=== PATIENT | female | born 1970 | race Caucasian/White ===

== ENCOUNTER 2023-07-23 18:13 | Emergency (ER) | payer OTHER, SELFPAY ==
[2023-07-23 18:15] VITALS: BP 149/93; PULSE 87; RESP 20; TEMP 36.7; O2SAT 99; BMI 32.3
--- NOTE | 2023-07-23 18:22 | ED_ITS ---
Discharge Plan Disposition Patient Disposition: Home, Self-Care Condition: Good Prescriptions Prescriptions: No Action lisinopril-hydrochlorothiazide 10-12.5 mg tablet 1 tab PO QDAY sulfacetamide sodium 10 % drops 2 drp OPHTHALMIC QID 7 Days Qty: 15 0RF Rx Instructions: ii gtts O.U. qid x 7 days Referrals Follow up/Referrals: Renny Brown [Primary Care Provider] - See instructions Activity Restrictions/Add. Instructions Additional Instructions/Restrictions: Follow up with your regular doctor. GO TO THE ER FOR ANY WORSENING SYMPTOMS Clinical Impressions Clinical Impression: Itchy scalp Instructions Patient Instructions: DI for Head Lice Discharge ED Provider: Chito Delvalle [facility] [place] General Stated complaint: ? Lice Time Seen by Provider: 07/23/23 18:22 History of Present Illness Provider Complaint: She came in to have her scalp checked for lice. She states that she has noted a small bug that she thinks came from her hair today. She has also had some itching of her scalp at times since yesterday. Related Data Home Medications Medication Instructions Recorded Confirmed lisinopril 10 1 tab PO QDAY 04/24/17 02/22/20 mg-hydrochlorothiazide 12.5 mg tablet Previous Rx's Medication Instructions Recorded sulfacetamide sodium 10 % eye drops 2 drp ophthalmic (eye) QID 02/22/20 conjunctivitis 7 days #15 mL Allergies Allergy/AdvReac Type Severity Reaction Status Date / Time No Known Allergies Allergy Verified 02/22/20 17:49 [facility] Disclaimer: The information contained in this section may have been updated after the patient was seen, as this information can be updated by other users. Social History Smoking Status: Never smoker alcohol intake: current substance use type: denies use current occupational status: employed Travel in the last 8 weeks: None household members: family housing: house ROS Obtained: Yes All systems reviewed & no additional complaints except as documented Constitutional Constitutional: Denies chills and Denies fever(s) Eyes Eyes: Denies eye discharge ENT Ears, Nose, Mouth, and Throat: Denies dizziness, Denies otalgia and Denies sore throat Cardiovascular Cardiovascular: Denies chest pain Respiratory Respiratory: Denies shortness of breath, Denies chest congestion, Denies cough, Denies stridor and Denies wheezing Gastrointestinal Gastrointestingal: Denies nausea or vomiting Musculoskeletal Musculoskeletal: Reports system reviewed and no additional complaints, except as documented and Denies arthralgias Integumentary/Breasts Skin/Breast: Denies rash Neurologic Neurologic: Denies dizziness and Denies paresthesias Allergic/Immunologic Allergic/Immunologic: Denies wheezing Physical Exam General General appearance: alert and in no apparent distress Head Head exam: atraumatic, normocephalic and normal inspection Eye Eye exam: Present normal appearance, PERRL and EOMI ENT ENT exam: Present normal exam, normal oropharynx, mucous membranes moist, TM's normal bilaterally and normal external ear exam Neck Neck exam: Present normal inspection, full ROM and trachea midline; Absent meningismus or lymphadenopathy Chest Chest inspection: Present normal inspection and symmetric chest wall rise; Absent tenderness Respiratory Respiratory exam: Present normal lung sounds bilaterally; Absent respiratory distress Cardiovascular Cardiovascular exam: Present regular rate and normal rhythm; Absent JVD Abdominal Exam Abdominal exam: Present soft and normal bowel sounds; Absent distention, tenderness or guarding Extremities Exam Extremities exam: Present normal inspection, full ROM and normal capillary refill; Absent calf tenderness Back Exam Back exam: Present normal inspection; Absent tenderness Neurological Exam Neurological exam: Present alert and oriented X3 Psychiatric Psychiatric exam: Present normal affect and normal mood Skin Skin exam: Present warm, dry, intact, normal color and other (no lice or nits noted upon very close examination of her scalp and hair. ) Lymphatic Lymphatic Findings: no adenopathy Medical Decision Making Medical Records Medical records reviewed: No I reviewed the patient's medical records. [place] Inquiry Pt receiving controlled substance: No
[2023-07-23 18:39] VITALS: BP 149/93; PULSE 87; RESP 20; TEMP 36.7; O2SAT 99
== END 2023-07-23 18:41 | disposition home or self-care (01) ==
PROVIDERS: Emergency Provider Nurse Practitioner Family; PCP Family Medicine
DX: L29.9 Pruritus, unspecified (principal)
CPT/HCPCS: 99203; 99212; G0463